=== PATIENT | male | born 1970 | race Caucasian/White ===

== ENCOUNTER → 2016-06-07 | Outpatient (CLI) | payer OTHER ==
[2014-11-08 14:06] VITALS: BP 138/86
[~2016-06-07] MED LIST: HYDR-2672 PO; INFL100V IV; IOHEXOL 240 MG/ML 50ML VIAL. PO ONE; IOHEXOL 300 MG/ML 75 ML VIAL IV ONE; MULT1TAB52 PO; VITA15DR PO
--- NOTE | 2016-06-07 09:33 | RAD ---
EXAM: CT abdomen/pelvis with contrast. HISTORY: Crohn disease, left lower quadrant pain, diarrhea, fever. TECHNIQUE: Computed tomography of the abdomen and pelvis was performed after the intravenous administration of 75 mL Omnipaque 300. COMPARISON: 11/07/2014. FINDINGS: Lung windows through the visualized portions of the bases reveal mild atelectasis. Bone windows reveal no suspicious lesions. There is a stable bone island in the left superior acetabulum. There is moderately to severely decreased femoral head/neck offset bilaterally with mild bilateral hip osteoarthritis. A subcutaneous nodule along the left lower back measures 2.7 cm and most likely represents a sebaceous cyst. Hypoattenuation of the hepatic parenchyma is consistent with diffuse hepatic steatosis. There are calcified granulomas in the spleen. The pancreas, adrenal glands and gallbladder are unremarkable. Both kidneys appear normal. There is an anastomotic suture line at the rectosigmoid junction. There is wall thickening of the distal sigmoid consistent with acute on chronic inflammation. There are multiple surrounding pericolonic lymph nodes that measure up to 1 cm. The involved region extends into the descending portion. The splenic flexure and transverse portion are not involved. Distal to the anastomosis, there is mild wall thickening and fatty infiltration of the rectum consistent with chronic inflammation. There is no drainable collection. There is a loop ileostomy along the right lower quadrant. There is a moderately sized parastomal hernia that contains a portion of the ascending colon and a redundant loop of the ileum. There is no obstruction. There may be minimal wall thickening at the terminal ileum. There is no stricture or obstruction. There is diffuse diastases of the rectus muscles, into which multiple nonobstructed small bowel loops or free. This is not associated with a discrete hernia. IMPRESSION: 1. Wall thickening of the descending and sigmoid colon, beginning just proximal to a rectosigmoid anastomosis, consistent with acute on chronic inflammation. Surrounding pericolonic lymph nodes are likely reactive. No drainable collection. 2. There is only minimal wall thickening of the terminal ileum without clear acute inflammation. 3. A moderate parastomal hernia about the right lower quadrant loop ileostomy now contains a portion of the ascending colon without obstruction. 4. Diffuse hepatic steatosis. *One or more of the following individualized dose reduction techniques were utilized for this examination: 1. Automated exposure control. 2. Adjustment of the mA and/or kV according to patient size. 3. Use of iterative reconstruction technique.
== END | disposition home or self-care (01) ==
LOC: CT 07:21
PROVIDERS: ATTEND Internal Medicine Gastroenterology
DX: K50.918 Crohn's disease, unspecified, with other complication (principal); R19.7 Diarrhea, unspecified; R50.9 Fever, unspecified
CPT/HCPCS: 74177; Q9966; Q9967

== ENCOUNTER → 2017-01-01 | Outpatient (CLI) | payer OTHER ==
[2014-11-08 14:06] VITALS: BP 138/86
[~2017-01-01] MED LIST changes: -HYDR-2672 PO; +HYDR-2766 PO; -IOHEXOL 240 MG/ML 50ML VIAL. PO ONE; -IOHEXOL 300 MG/ML 75 ML VIAL IV ONE
--- NOTE | 2017-01-01 11:20 | KCIC ---
ABDOMEN LTD: 01/01/2017 8:00 AM Indication: 46 years old Male. Abnormal LFTs. Comparison: Ultrasound abdomen September 10, 2013 FINDINGS: Liver: Increased echogenicity of the hepatic parenchyma suggestive of diffuse hepatocellular disease, most commonly hepatic steatosis. This limits evaluation for underlying hepatic masses. Liver measures 16.3 cm. Biliary system: CBD measures 6 mm. There is no intrahepatic or extrahepatic biliary dilatation. Gallbladder: No stones, wall thickening or pericholecystic fluid. Pancreas: Visualized head and uncinate process are unremarkable. Body and tail are not visualized. Right kidney: 12.9 x 5.5 x 6.9 cm. No hydronephrosis. Normal echotexture without focal mass or renal calculus. Free fluid:None. Aorta is obscured. IMPRESSION: Increased echogenicity of the hepatic parenchyma suggestive of diffuse hepatocellular disease, most commonly hepatic steatosis. This limits evaluation for underlying hepatic masses. There is no intrahepatic or extrahepatic biliary ductal dilatation. Electronically signed by: Gosia Aranda MD (01/01/2017 11:17 AM) [facility]
== END | disposition home or self-care (01) ==
LOC: KCIC US 07:43
PROVIDERS: ATTEND Internal Medicine Gastroenterology
DX: R94.5 Abnormal results of liver function studies (principal); R16.0 Hepatomegaly, not elsewhere classified
CPT/HCPCS: 76705

== ENCOUNTER 2017-03-13 07:09 | Outpatient (CLI) | payer OTHER ==
[2017-03-13] VITALS (15 sets, daily range): BP systolic 97–131; BP diastolic 45–81
[~2017-03-13] VITALS: Ht 180.3 cm; Wt 117.9 kg
[2017-03-13 08:05] LABS: BASO % 1 % (0-3); EOS % 3 % (0-3); HEMOGLOBIN 15.3 g/dL (13.0-17.5); LYMPH # 1.8 x10^3/uL (1.0-4.8); LYMPH % 28 % (24-48); MEAN CORPUSCULAR HEMOGLOBIN 30 pg (25-35); MEAN CORPUSCULAR HGB CONC 33 g/dL (31-37); MEAN CORPUSCULAR VOLUME 91 fL (79-100); MONO % 10 % (0-9); NEUT % 58 % (31-73); PLATELET COUNT 249 x10^3/uL (140-400); RED BLOOD COUNT 5.08 x10^6/uL (4.30-5.70); RED CELL DISTRIBUTION WIDTH 13.7 % (11.5-14.5); WHITE BLOOD COUNT 6.3 x10^3/uL (4.0-11.0)
[2017-03-13 08:11] LABS: PROTHROMBIN TIME PATIENT 12.2 SEC (11.7-14.0)
[2017-03-13] MEDS ORDERED: GLIM1TAB2 PO (08:35)
[2017-03-13] MEDS ORDERED: LIDOCAINE 1% / SOD BICARB 8.4% 20 ML VIAL. IJ ONE ×2 (08:36→09:00)
[2017-03-13] MEDS ORDERED: AZAT50TA PO (08:36)
[2017-03-13] MEDS ORDERED: fentaNYL PF VIAL 100 MCG/2 ML VIAL ONE (08:53)
[2017-03-13] MEDS ORDERED: MIDAZOLAM HCL/PF 2 MG/2 ML VIAL. ONE (08:53)
[2017-03-13] MEDS ORDERED: GELATIN SPONGE SIZE 12-7MM SPONGE. ONE (08:53)
[2017-03-13] MEDS ORDERED: GELATIN SPONGE SIZE 12-7MM SPONGE. TP ONE (09:00)
[2017-03-13] MEDS ORDERED: fentaNYL PF VIAL 100 MCG/2 ML VIAL IV ONE (09:00)
[2017-03-13] MEDS ORDERED: MIDAZOLAM HCL/PF 2 MG/2 ML VIAL. IV ONE (09:00)
--- NOTE | 2017-03-13 12:48 | RAD ---
CT-guided biopsy, right hepatic lobe 03/13/2017 Indication: Elevated liver enzymes. Hepatic steatosis. Discussion: The risks and benefits of the procedure were discussed the patient. Informed consent was obtained. A timeout procedure was performed. The patient was placed in the CT scanner in the supine position. All elements of maximal sterile barrier technique including the use of a cap, mask, sterile gown, sterile gloves, large sterile sheet, appropriate hand hygiene, and 2% chlorhexidine for cutaneous antisepsis (or acceptable alternative antiseptic per current guidelines) were followed for this procedure. CT imaging was obtained delineating hepatic anatomy.1% lidocaine was administered for local and deep. A 17-gauge guiding needle was advanced into the inferior right hepatic lobe. Multiple 18-gauge core biopsy samples were obtained. Gelfoam embolization of the biopsy tract was performed as the guiding needle was removed. Manual pressure was held. Repeat CT demonstrates no hemorrhage or immediate complications. The procedures performed under moderate sedation including continuous cardiopulmonary monitoring via a dedicated sedation nurse. Sedation time: 30 minutes Impression: CT-guided, nontargeted liver biopsy PQRS Compliance Statement: One or more of the following individualized dose reduction techniques were utilized for this examination: 1. Automated exposure control 2. Adjustment of the mA and/or kV according to patient size 3. Use of iterative reconstruction technique
--- NOTE | 2017-03-14 17:50 | PATHOLOGY ---
PATHOLOGY REPORT * * * * * * * * FINAL DIAGNOSIS: Liver, needle biopsy: - Case submitted to liver pathologist compliance consultant, results to follow. (JPM:arcadio; 03/14/2017) REPORT ELECTRONICALLY SIGNED BY: Jesus Sierra M.D. DATE/TIME: 03/14/2017 17:50 * * * * * * * * GROSS PATHOLOGY: Received in formalin labeled "Neha Flores liver tissue," are 3 distinct needle cores of villar soft tissue ranging from 0.3 to 1.7 cm in length, which are submitted entirely in cassette A1. (TSD; 03/13/2017) INITIAL CPT CODE(S): A; 37069, 08013, 87221, 27522, 59659, 57806 Professional services performed [place] [facility] [place] [address] Technical services performed by [facility] at [address] [place] [address]. SPECIMEN(S) RECEIVED: A.Liver, needle biopsy CLINICAL HISTORY: Elevated LFT's PATIENT: NEHA FLORES /AGE: 1203/27/1970 (Age: 46) PATIENT #: [id number] ALT CASE #: SPECIMEN COLLECTION DATE: 03/13/2017 SPECIMEN RECEIVED DATE: 03/13/2017 [facility] - [address] [place] [address] - PHONE: [phone] * * * END OF REPORT * * *
== END 2017-03-13 13:12 | disposition home or self-care (01) ==
LOC: INTRAD 07:09
PROVIDERS: ATTEND Internal Medicine Gastroenterology
DX: K76.0 Fatty (change of) liver, not elsewhere classified (principal); E66.9 Obesity, unspecified; Z68.36 Body mass index [BMI] 36.0-36.9, adult; K50.90 Crohn's disease, unspecified, without complications; F17.210 Nicotine dependence, cigarettes, uncomplicated
CPT/HCPCS: 36415; 47000; 77012; 85025; 85610; 88307; 88313; J2250; J3010; 99152; 99153

== ENCOUNTER → 2017-11-27 | Outpatient (CLI) | payer OTHER ==
[2017-03-13 12:45] VITALS: BP 117/57
[~2017-11-27] MED LIST changes: +AZAT50TA PO; +GLIM1TAB2 PO
--- NOTE | 2017-12-03 10:32 | SLEEP ---
DATE OF STUDY: 11/27/2017 SLEEP STUDY ATTENDING PHYSICIAN: Dr. Althea Madsen. The patient is 47 years old who weighs 269 pounds with a BMI of 36. The patient underwent a split-night study at [facility]. During the night study, the patient spent 418 minutes in bed and slept for 369 minutes, with a sleep efficiency of 88%. Sleep latency was 3 minutes with a REM latency of 82 minutes. Overall, sleep architecture showed increased stage I sleep, reduced stage II sleep, increased slow wave and increased REM sleep. During the initial diagnostic portion of the study, the patient slept for 137 minutes. During that time, the patient had 13 obstructive apneas, no mixed apneas, 1 central apnea and 181 hypopneas. The patient's apnea-hypopnea index during the diagnostic portion was 85 per hour, supine index 89 per hour and a REM index of 73 per hour. Review of nocturnal oximetry study revealed a mean oxygen saturation of 95% with the lowest of 70%; 24% of time, oxygen saturation remained between 80% and 89% and it was worse during REM sleep. EKG monitoring revealed normal sinus rhythm. Average heart rate was 86 beats per minute. No sustained arrhythmias observed. No clinically significant PLMS observed. The patient met the criteria for CPAP initiation. It was started at 5 cm water and titrated up to 18 cm water. At the final pressure, the patient slept for 109 minutes. The patient had supine as well as REM sleep. The patient's AHI was reduced to only 1 per hour and oxygen saturation remained above 94%. The patient used a medium-sized full-face mask. IMPRESSION: 1. Severe sleep apnea-hypopnea syndrome at an apnea-hypopnea index of 85 per hour. 2. Nocturnal hypoxia secondary to obstructive sleep apnea, but resolved with CPAP. 3. No clinically significant periodic limb movements of sleep. RECOMMENDATIONS: 1. CPAP at 18 cm water completely eliminated the patient's sleep apnea and should be used on a nightly basis. 2. Follow up in 4-6 weeks to assess compliance with CPAP and to document clinical improvement. 3. Weight loss is strongly advised. 4. Avoid CENTRAL SUPPLY AIDE depressants. 5. Caution regarding driving until symptoms of sleep apnea resolve with the use of CPAP. ROSIO SWEENEY MD DR: CHRISTIE/magdalena JOB#: [id number] / [id number] ALTHEA Paige MD
== END | disposition home or self-care (01) ==
LOC: RT 19:10
PROVIDERS: ATTEND Internal Medicine Critical Care Medicine
DX: G47.33 Obstructive sleep apnea (adult) (pediatric) (principal); E66.9 Obesity, unspecified; Z86.73 Personal history of transient ischemic attack (TIA), and cerebral infarction without residual deficits; Z87.891 Personal history of nicotine dependence; Z68.36 Body mass index [BMI] 36.0-36.9, adult
CPT/HCPCS: 95810

== ENCOUNTER → 2018-11-14 | Outpatient (CLI) | payer OTHER ==
[2017-03-13 12:45] VITALS: BP 117/57
[~2018-11-14] MED LIST changes: -HYDR-2766 PO; +HYDR-2769 PO
--- NOTE | 2018-11-14 16:14 | RAD ---
EXAM: AP views of the abdomen in upright and supine positions. CLINICAL INDICATION: Ileostomy COMPARISON: 11/14/2018 FINDINGS and IMPRESSION: No abnormal small or large bowel dilatation. Moderate colonic stool content. No abnormal soft tissue mass effect. No suspicious calcifications are seen. No free intraperitoneal gas. Right hip joint degenerative changes are seen. Electronically signed by: Fly Wilder MD (11/14/2018 4:11 PM) [facility]
== END | disposition home or self-care (01) ==
LOC: RAD 10:08
PROVIDERS: ATTEND Surgery
DX: M16.11 Unilateral primary osteoarthritis, right hip (principal); Z93.2 Ileostomy status
CPT/HCPCS: 74021

== ENCOUNTER → 2020-02-15 | Outpatient (CLI) | payer OTHER ==
[~2020-02-15] MED LIST changes: +ATOR20TA58 PO; +CONTRAST GIVEN. MC PRN; +DULA1.5P SQ; -GLIM1TAB2 PO; +GLIM1TAB7 PO; +HYDR-2761 PO; +IOHEXOL 300 MG/ML 100ML VIAL. PR ONE; +LISI-338 PO; +MULT-445 PO; -MULT1TAB52 PO
--- NOTE | 2020-02-15 10:38 | RAD ---
Barium enema INDICATION: 49-year-old man with a history of Crohn's disease and right abdominal ileostomy following previous colostomy with takedown presents with bloating and concern for possible strictures. TECHNIQUE AND FINDINGS: An initial industrial retrofit designer view was obtained showing a moderate amount of stool throughout the visualized large bowel. Attempt was made at placing the rectal catheter for contrast infusion but there was difficulty advancing the catheter satisfactorily and in inflating the bulb. Attempt at water soluble contrast infusion resulted in intolerable discomfort after which the catheter was removed and no further attempt at catheter placement was made following discussion with the patient.. A total of 3 images were acquired. Total fluoroscopy time was 0.7 minutes. IMPRESSION: Unsuccessful water-soluble contrast enema. Results discussed with Dr. Penaloza by telephone at the time of procedure conclusion. Electronically signed by: Fely Sanchez MD (02/15/2020 10:35 AM) [id number]
[2020-02-18 13:36] VITALS: BP 131/72
== END ==
LOC: RAD 08:00
PROVIDERS: ATTEND Surgery
DX: K52.3 Indeterminate colitis (principal); K59.00 Constipation, unspecified; Z68.36 Body mass index [BMI] 36.0-36.9, adult
CPT/HCPCS: 74270

== ENCOUNTER → 2020-02-16 | Day surgery (SDC) | payer OTHER ==
[~2020-02-16] MED LIST changes: -CONTRAST GIVEN. MC PRN; +DEXAMETHASONE SOD PHOS 4 MG/ML VIAL ONE; +HYDROmorphone 2 MG/ML VIAL IV PRN; -IOHEXOL 300 MG/ML 100ML VIAL. PR ONE; +IOHEXOL 300 MG/ML 50 ML VIAL. ONE; +IV RINGERS,LACTATED 1000ML 1,000 ML IV SCH; +LIDOCAINE 2% PF 5 ML VIAL. ONE; +MORPHINE SULFATE 2 MG/ML VIAL. IV PRN; +ONDANSETRON PF 4 MG/2 ML VIAL. IV PRN; +ONDANSETRON PF 4 MG/2 ML VIAL. ONE; +PEG 3350/NA SULF,BICARB,CL/KCL 4,000 ML SOLUTION. PO ONE; +PROCHLORPERAZINE 10 MG/2 ML VIAL. IV PRN; +PROPOFOL 10 MG/ML (20ML) VIAL. IV ONE; +ROCURONIUM 50 MG/5 ML VIAL. ONE; +fentaNYL PF VIAL 100 MCG/2 ML VIAL IV PRN; +fentaNYL PF VIAL 100 MCG/2 ML VIAL ONE
[2020-02-16 08:40] VITALS: BP 128/85
--- NOTE | 2020-02-16 09:22 | PDOC ---
SURGICAL PROGRESS NOTE DATE: 02/16/20 TIME: 09:21 Subjective Pre-Op Note 49 yo M with colitis. Will prep in preop with golytely via ileostomy. H&P reviewed and unchanged. d/w pt and pt's family R/R/B/A. Vital Signs Vital Signs Date Time Temp Pulse Resp B/P (MAP) Pulse Ox O2 Delivery O2 Flow Rate FiO2 02/16/20 08:40 98.4 92 18 128/85 95 Room Air 98.4 Labs Laboratory Tests Test 02/16/20 08:15 SARS-CoV-2 Antigen (Rapid) Negative (NEGATIVE) Laboratory Tests Test 02/16/20 08:15 SARS-CoV-2 Antigen (Rapid) Negative (NEGATIVE) Justicifation of Admission Dx: Justifications for Admission: Justification of Admission Dx: N/A IRWIN DOTSON MD Feb 16, 2020 09:22
--- NOTE | 2020-02-16 19:24 | PDOC4 ---
OPERATIVE NOTE Date: Date: Feb 16, 2020 Pre-Op Diagnosis: Colitis Post-Op Diagnosis: same Procedure Performed: Flushing of ileostomy with golytely in preop Surgeon: Drew Dotson Anesthesia Type: none Blood Loss: none Specimans Obtained: none Findings: ileostomy with parastomal hernia Complications: none Operative Note: In attempt top clear nonactive colon, NGT introduced into distal part of loop ileostomy to a depth of 20 cm without pain. 1/4 galloon of golytely was introduced over several hours. Patient tolerated this well throughout. No obvious rectal bowel function was noted. At this point, procedure was terminated with NGT removed and patient discharged home. IRWIN DOTSON MD Feb 16, 2020 19:24
== END | disposition home or self-care (01) ==
LOC: SURG 08:03
PROVIDERS: ATTEND Surgery
DX: K52.9 Noninfective gastroenteritis and colitis, unspecified (principal); Z53.8 Procedure and treatment not carried out for other reasons; K52.3 Indeterminate colitis; K43.5 Parastomal hernia without obstruction or gangrene; K59.00 Constipation, unspecified; E66.9 Obesity, unspecified; G47.30 Sleep apnea, unspecified; E11.9 Type 2 diabetes mellitus without complications; Z20.828 Contact with and (suspected) exposure to other viral communicable diseases; Z87.891 Personal history of nicotine dependence; Z79.899 Other long term (current) drug therapy; Z98.890 Other specified postprocedural states; Z82.49 Family history of ischemic heart disease and other diseases of the circulatory system
CPT/HCPCS: 87426; J2704; J3010; U0003; J1100; J2405; Q9967

== ENCOUNTER → 2020-02-18 | Day surgery (SDC) | payer OTHER ==
[~2020-02-18] MED LIST changes: -DEXAMETHASONE SOD PHOS 4 MG/ML VIAL ONE; -HYDROmorphone 2 MG/ML VIAL IV PRN; -IOHEXOL 300 MG/ML 50 ML VIAL. ONE; -MORPHINE SULFATE 2 MG/ML VIAL. IV PRN; -ONDANSETRON PF 4 MG/2 ML VIAL. IV PRN; -ONDANSETRON PF 4 MG/2 ML VIAL. ONE; -PEG 3350/NA SULF,BICARB,CL/KCL 4,000 ML SOLUTION. PO ONE; -PROCHLORPERAZINE 10 MG/2 ML VIAL. IV PRN; -ROCURONIUM 50 MG/5 ML VIAL. ONE; -fentaNYL PF VIAL 100 MCG/2 ML VIAL IV PRN; -fentaNYL PF VIAL 100 MCG/2 ML VIAL ONE
[2020-02-18 13:36] VITALS: BP 131/72
--- NOTE | 2020-02-23 15:08 | PATHOLOGY ---
[facility] Accession Number: [id number] . 01 Material submitted: . PART A: rectum - RECTAL BIOPSY PART B: colon - TRANSVERSE COLON BIOPSY STRICTURE R/O CROHNS. Modifiers: transverse . 01 Clinical history: . CROHNS, BOWEL OBSTRUCTION . 02 Diagnosis: A. Rectal biopsies: - Segment of rectal mucosa showing mild chronic inflammation without granulomas or specific features, and segments of mucopurulent/acute inflammatory exudate. . B. Transverse colon stricture biopsy: - Segments of small intestine mucosa showing mild chronic inflammation without granulomas or specific features. . (JPM:mm; 02/22/2020) [facility] 02/23/2020 1416 Local . 02 Comment: There is no dysplasia or evidence of malignancy. . (JPM:mml; 02/22/2020) . 02 Electronically signed: . Jesus Sierra MD, Pathologist NPI- [id number] . 01 Gross description: . A. Received in formalin labeled "Merchant, Cj, rectal BX" are multiple villar-brown soft tissue fragments measuring in aggregate 0.7 x 0.4 x 0.1 cm. The specimen is submitted entirely in A1. . B. Received in formalin labeled "Merchant, Cj, transverse colon stricture rule out Crohn's" is a fragment of villar-brown soft tissue measuring 0.6 x 0.3 x 0.1 cm. The specimen is submitted entirely in B1. ([facility] [place] 02/20/2020) [facility] 02/20/2020 1118 Local . 02 Pathologist provided ICD-10: K52.9 . 02 CPT . 240132, 304703 Specimen Comment: A courtesy copy of this report has been sent to [phone], [phone] Specimen Comment: [id number] Specimen Comment: Report sent to / DR LUONG Performed at: [address] [facility], [place] [id number] MD Bijan Sepulveda MD Phone: [phone] Performed at: [address] [facility] [address] [place], [place] [id number] MD Jesus Sierra MD Phone: [phone]
== END | disposition home or self-care (01) ==
LOC: ENDOS 11:18
PROVIDERS: ATTEND Internal Medicine Gastroenterology
DX: K50.10 Crohn's disease of large intestine without complications (principal); K64.0 First degree hemorrhoids; K62.4 Stenosis of anus and rectum; K63.89 Other specified diseases of intestine; E11.9 Type 2 diabetes mellitus without complications; E66.9 Obesity, unspecified; G47.30 Sleep apnea, unspecified; Z87.891 Personal history of nicotine dependence; Z72.89 Other problems related to lifestyle; Z79.899 Other long term (current) drug therapy; Z88.8 Allergy status to other drugs, medicaments and biological substances; Z98.890 Other specified postprocedural states
CPT/HCPCS: 45380; 88305; J2704; 45378

== ENCOUNTER → 2020-08-19 | Outpatient (CLI) | payer OTHER ==
[2020-02-18 13:36] VITALS: BP 131/72
[~2020-08-19] MED LIST changes: -IV RINGERS,LACTATED 1000ML 1,000 ML IV SCH; -LIDOCAINE 2% PF 5 ML VIAL. ONE; -LISI-338 PO; +LISI-517 PO; -PROPOFOL 10 MG/ML (20ML) VIAL. IV ONE
--- NOTE | 2020-08-19 16:26 | RAD ---
EXAM: Bilateral lower extremity venous Doppler sonogram. HISTORY: Pain and swelling. TECHNIQUE: Pang scale and color Doppler sonographic evaluation of the bilateral lower extremity veins with spectral waveform analysis was performed. FINDINGS: There is normal color flow, normal compressibility and there are normal spectral waveforms in the common femoral, superficial femoral, popliteal, posterior tibial and greater saphenous veins. IMPRESSION: No Doppler evidence of lower extremity deep venous thrombosis. Electronically signed by: Judie Allred MD (08/19/2020 4:24 PM) [id number]
== END ==
LOC: US 15:15
PROVIDERS: ATTEND Surgery
DX: M79.604 Pain in right leg (principal); M79.605 Pain in left leg
CPT/HCPCS: 93970